=== PATIENT | male | born 1940 | race Caucasian/White ===

== ENCOUNTER 2019-08-18 09:00 | Inpatient (IN) | payer OTHER ==
[~2019-08-18] VITALS: Ht 160 cm; Wt 95.3 kg
[2019-08-18] MEDS ORDERED: ATORVASTATIN CA20 MG (09:08)
[2019-08-18] MEDS ORDERED: FOLIC ACID1 MG (09:09)
[2019-08-18] MEDS ORDERED: PROSCAR5 MG (09:09)
[2019-08-18] MEDS ORDERED: CARVEDILOL12.5 MG (09:09)
[2019-08-18] MEDS ORDERED: LANTUS SOL100 UNIT/1 (09:10)
[2019-08-18] MEDS ORDERED: HYDROXYCHLOROQ200 MG (09:10)
[2019-08-18] MEDS ORDERED: NIFE60TA3 (09:10)
[2019-08-18] MEDS ORDERED: OMEPRAZOLE20 M1 (09:10)
[2019-08-18] MEDS ORDERED: NOVOLOG100 UNIT/1 (09:10)
[2019-08-18] MEDS ORDERED: PREDNISONE5 M1 (09:10)
[2019-08-18] MEDS ORDERED: FISH OIL 1,0001 EAC4 (09:11)
[2019-08-18] MEDS ORDERED: ADULT ASPIRIN81 MG (09:11)
[2019-08-18] MEDS ORDERED: TAMS0.4C (09:11)
[2019-08-18] MEDS ORDERED: DEMADEX10 MG (09:11)
[2019-08-18] MEDS ORDERED: PRIMIDONE50 MG (09:11)
[2019-08-18] MEDS ORDERED: IRON236 MG (09:12)
[2019-08-18] MEDS ORDERED: VITAMIN C500 M2 (09:12)
[2019-08-18] MEDS ORDERED: MAGNESIUM400 MG (09:12)
[2019-08-18] MEDS ORDERED: VITAMIN D2000 UNIT (09:12)
--- NOTE | 2019-08-18 09:13 | NUR ---
PTE ALERTA Y ORIENTADO EN ARNEL ESFERAS. LLEGA A MINO DE EMERGENCIAS EN AMBULANCIA, ACOMPANADO DE FAMILIAR Y PARAMEDICOS. PT REFIERE COMENZO A PRESENTAR DESDE ESTA MADRUGADA DIFICULTAD RESPIRATORIA Y DOLOR DE PECHO. LLEGA CONECTADO A MONITOR CARDIACO. CANULA NASAL A 3LTS. SALINE LOCK EN ANTEBRAZO IRMA. SE OBSERVA CON RESPIRACIONES ABDOMINALES, LABORIOSAS. PT PRESENTADO A DR SOLIS.
--- NOTE | 2019-08-18 09:39 | NUR ---
EVALUADO POR EL SE ORIENTA PTE SOBRE TRATAMIENTO MEDICO Y LA UNIDAD POR CONECTADO A MONITOR CARDIACO, ALERTA, ORIENTADO POR ARNEL, ACOMPANADO POR FAMILIAR LE EXTRAE MUESTRAS DE ROMAN Y SE ENVIAN AL LABORATORIO. SE LE OBSERVAN EXTREMIDADES INFERIORES EDEMATOSA. SE MANTIENE EN OBSERVACION.
--- NOTE | 2019-08-18 09:57 | NUR ---
SE LE INSERTA FOLLEY CATETER CON TODAS LAS TECNICAS ASEPTICAS POR
--- NOTE | 2019-08-18 15:30 | NUR ---
SE RECIBE PTE EN LA UNIDAD DE CENTRO DE DOLOR DE PECHO EN EL [address] EN CAMA CON BARANDAS ELEVADA TIMBRE ACCESIBLE PTE ALERTA Y CONCIENTE POR 3 NO PRESENTA DOLOR AL MOMENTO, SE OBSERVA VENOPUNCION EN EL BRAZO IRMA BAJANDO TRIDIL@3ML/HR PTE EN COMPANIA DE VITALE FAMILIAR CONECTADO A MONITOR CARDIACO Y OXYMETRIA DE PULSO, POLLARD DRENANDO ORIENA DE COLOR AMARILLO PTE SE MANTIENE EN OBSERVACION Y BAJO TRATAMIENTO EN ESPERA DEL DR OREILLY
== END 2019-08-24 14:43 | disposition home or self-care (01) | DRG 682 ==
LOC: ER 09:00 → SEC-K 17:09 → SURH 17:09 → SEC-K 18:10 → SURH 21:52 → MEDJ 08-22 13:43
PROVIDERS: ADMIT Internal Medicine
PROC: 3E0F7GC Introduction of Other Therapeutic Substance into Respiratory Tract, Via Natural or Artificial Opening (ICD-10-PCS; principal; 2019-08-18)
PROC: 4A033R1 Measurement of Arterial Saturation, Peripheral, Percutaneous Approach (ICD-10-PCS; 2019-08-18)
PROC: 0T9B70Z Drainage of Bladder with Drainage Device, Via Natural or Artificial Opening (ICD-10-PCS; 2019-08-18)
PROC: 4A12X4Z Monitoring of Cardiac Electrical Activity, External Approach (ICD-10-PCS; 2019-08-18)
PROC: B246ZZZ Ultrasonography of Right and Left Heart (ICD-10-PCS; 2019-08-19)
DX: N17.8 Other acute kidney failure (principal); I50.43 Acute on chronic combined systolic (congestive) and diastolic (congestive) heart failure; I13.0 Hypertensive heart and chronic kidney disease with heart failure and stage 1 through stage 4 chronic kidney disease, or unspecified chronic kidney disease; I08.0 Rheumatic disorders of both mitral and aortic valves; I11.0 Hypertensive heart disease with heart failure; N18.3 Chronic kidney disease, stage 3 (moderate); E66.09 Other obesity due to excess calories; E11.22 Type 2 diabetes mellitus with diabetic chronic kidney disease; D63.1 Anemia in chronic kidney disease; N39.8 Other specified disorders of urinary system; Z79.4 Long term (current) use of insulin